=== PATIENT | male | born 1980 | race African-American/Black ===

== ENCOUNTER 2021-08-25 19:43 | Emergency (ER) | payer OTHER ==
[~2021-08-25] VITALS: Ht 162.6 cm; Wt 72.6 kg
[2021-08-25 20:02] VITALS: BP 165/101
[2021-08-25] MEDS ORDERED: LISINOPRIL-HCT1 EAC2 PO (20:11)
== END 2021-08-25 21:27 | disposition home or self-care (01) ==
LOC: ER 19:43
DX: J02.9 Acute pharyngitis, unspecified (principal); H93.8X2 Other specified disorders of left ear; I10 Essential (primary) hypertension; Z53.21 Procedure and treatment not carried out due to patient leaving prior to being seen by health care provider